=== PATIENT | male | born 1945 ===

== ENCOUNTER 2022-03-28 19:00 | Inpatient (IN) | payer MEDICARE, OTHER ==
[~2022-03-28] VITALS: Wt 102.3 kg
--- NOTE | 2022-03-29 04:46 | NUR ---
SUMMARY PT ARRIVED TO ROOM IN NO DISTRESS. PT IS AOX4 AND INDEPENDANT IN ROOM. PT DENIES ABD PAIN ON ARRIVAL. PT HAS BEEN TX FOR ABD DISCOMFORT PER EMAR WITH RELIEF. PT DENIES ANY N/V AT THIS TIME. PT HAD SX INFECTION PREVENTION PERFORMED. PT CURRENTLY RESTLY COMFORTABLY WITH NO COMPLAINTS.
--- NOTE | 2022-03-29 06:33 | NUR ---
0633 PT COVID TEST FROM [facility] WAS NEGATIVE. COPY PROVIDED IN FRONT OF PT'S CHART.
[2022-03-29 07:54] LABS: BASOPHILS ABSOLUTE AUTO 0.03 K/mm3 (0.00-0.23); BASOPHILS PERCENT AUTO 0 % (0-2); EOSINOPHILS ABSOLUTE AUTO 0.06 K/mm3 (0.00-0.68); EOSINOPHILS PERCENT AUTO 0 % (0-6); Hematocrit 45.7 % (37.0-53.0); Hemoglobin 14.1 g/dL (13.5-17.5); IMMATURE GRAN ABSOLUTE AUTO 0.05 K/mm3 (0.00-0.10); IMMATURE GRAN PERCENT AUTO 0 % (0-1); LYMPHOCYTES ABSOLUTE AUTO 1.07 K/mm3 (0.84-5.20); LYMPHOCYTES PERCENT AUTO 8 % (21-46); MONOCYTES ABSOLUTE AUTO 1.82 K/mm3 (0.16-1.47); MONOCYTES PERCENT AUTO 13 % (4-13); Mean Corpuscular HGB Conc 30.9 g/dL (31.5-36.5); Mean Corpuscular Volume 81 fL (80-100); Mean Platelet Volume 10.3 fL (9.1-12.4); NEUTROPHILS ABSOLUTE AUTO 10.62 K/mm3 (1.96-9.15); NEUTROPHILS PERCENT AUTO 78 % (41-73); Platelet Count 254 K/mm3 (150-400); RDW Coefficient Variation 16.9 % (11.7-14.2); RDW Standard Deviation 48.5 fL (35.1-46.3); Red Blood Cell Count 5.64 M/mm3 (4.30-5.90); White Blood Cell Count 13.65 K/mm3 (4.00-11.30)
--- NOTE | 2022-03-29 08:09 | NUR ---
PT HAS PREVIOUS NEGATIVE COVID TEST ON 03/28/22 AT [facility]. SEE PAPER CHART. PER DR. ROSSI, OK TO DC ORDERED COVID TEST.
[2022-03-29 08:11] LABS: Albumin, Blood 2.8 g/dL (3.4-5.0); Albumin/Globulin Ratio 0.6 (0.8-1.8); Bilirubin, Total 2.7 mg/dL (0.1-1.0); Bun/Creatinine Ratio 20.3 (12.0-20.0); Calcium, Blood 9.3 mg/dL (8.5-10.1); Creatinine, Blood 1.38 mg/dL (0.60-1.20); Globulin, Blood 4.8 g/dL (2.2-4.0); Total Protein, Blood 7.6 g/dL (6.4-8.2)
--- NOTE | 2022-03-29 10:21 | NUR ---
PT TO OR AT ABOUT 1015
--- NOTE | 2022-03-29 10:41 | NUR ---
PT RECENTLY TO [facility] BY [facility]. History, Chart, Medications and Allergies reviewed before start of procedure.Lungs clear T/O to Auscultation. Patient confirms NPO status and agrees with scheduled surgery. Pre-Op teaching done. Pt verbalizes understanding.
--- NOTE | 2022-03-29 16:11 | NUR ---
POST OP: REPORT RECEIVED FROM GAURAV, HOSE SUSPENDER CUTTER. PT TO UNIT AT ABOUT 1600. PT IS A/O, VSS. SURGICAL SITES WNL. 30ML BRIGHT RED DRAINAGE EMPTIED FROM LEATHA BULB. LEATHA WNL. PT REPORTS PAIN 5/10, MEDICATED PER EMAR. PT DENIES N/V ABLE TO TAKE SMALL SIPS OF WATER. REPORT PASSED TO GILDARDO STRAUSS.
--- NOTE | 2022-03-29 18:35 | NUR ---
SHIFT SUMMARY ASSUMED CARE OF PATIENT AT 1600 FROM DARIUS RAPHAEL RN. PATIENT ALERT AND ORIENTED. TOLERATING WATER AND JELLO. MEDICATED FOR ABD PAIN PER EMAR. IV FLUIDS RUNNING. VOIDING IN URINAL AT BEDSIDE. ABD DISTENDED WITH 3 LAP SITES AND A LEATHA DRAIN. WNL. LEATHA PUTTING OUT MOD AMOUNT SS DRAINAGE. POD #0 CHOLECYSTECTOMY. PLAN TO DISCHARGE HOME TOMORROW 03/30/22. WILL REPORT TO BIOMEDICAL EQUIPMENT TECHNICIAN RN.
--- NOTE | 2022-03-30 03:08 | NUR ---
POD1 LAP JUAN A WITH 3 LAP SITES WITH DERMABOND REMAIN CDI. 1 LEATHA DRAIN ON RLQ WITH 40ML DRAINAGE, SEROSANGENOUS. PT REPORTS MINIMAL PAIN. NO PAIN MEDS GIVEN OVERNIGHT. TOLERATING PO INTAKE, PT HAS TOLERATED CLEAR LIQ DIET OVERNIGHT. DENIES NAUSEA AND VOMITING. VSS. DENIES CHEST PAIN AND SOB. VOIDING 900ML, DARK YELLOW URINE. DENIES DYSURIA. BT PRESENT. ABD MILD DISTENTION. SALINE LOCKED THIS MORNING. AOX4. SCD'S IN PLACE. PT SLEPT GOOD LAST NIGHT, REPORTS THAT HE HAD 3HRS STRAIGHT OF DEEP SLEEP. AMBULATES INDEPENDENTLY IN ROOM. DENIES DIZZINESS. STEADY ON HIS FEET. CALL LIGHT WITHIN REACH. BED IN LOW POSITION. WILL PROVIDE REPORT TO ONCOMING NURSE.
[2022-03-30 05:08] LABS: BASOPHILS ABSOLUTE AUTO 0.03 K/mm3 (0.00-0.23); BASOPHILS PERCENT AUTO 0 % (0-2); EOSINOPHILS PERCENT AUTO 0 % (0-6); Hematocrit 38.3 % (37.0-53.0); Hemoglobin 12.2 g/dL (13.5-17.5); IMMATURE GRAN ABSOLUTE AUTO 0.08 K/mm3 (0.00-0.10); IMMATURE GRAN PERCENT AUTO 1 % (0-1); LYMPHOCYTES PERCENT AUTO 4 % (21-46); MONOCYTES ABSOLUTE AUTO 1.28 K/mm3 (0.16-1.47); MONOCYTES PERCENT AUTO 7 % (4-13); Mean Corpuscular HGB 25.2 pg (26.0-34.0); Mean Corpuscular HGB Conc 31.9 g/dL (31.5-36.5); Mean Corpuscular Volume 79 fL (80-100); Mean Platelet Volume 10.5 fL (9.1-12.4); NEUTROPHILS ABSOLUTE AUTO 15.51 K/mm3 (1.96-9.15); NEUTROPHILS PERCENT AUTO 88 % (41-73); Platelet Count 247 K/mm3 (150-400); RDW Coefficient Variation 16.5 % (11.7-14.2); RDW Standard Deviation 46.8 fL (35.1-46.3); Red Blood Cell Count 4.84 M/mm3 (4.30-5.90)
[2022-03-30 05:44] LABS: Albumin, Blood 2.4 g/dL (3.4-5.0); Albumin/Globulin Ratio 0.6 (0.8-1.8); Bilirubin, Total 1.1 mg/dL (0.1-1.0); Bun/Creatinine Ratio 24.8 (12.0-20.0); Creatinine, Blood 1.01 mg/dL (0.60-1.20); Globulin, Blood 4.3 g/dL (2.2-4.0); Potassium, Blood 4.3 mmol/L (3.5-5.5); Total Protein, Blood 6.7 g/dL (6.4-8.2)
[2022-03-30] MEDS ORDERED: HYDR1TAB94 PO (10:49)
[2022-03-30] MEDS ORDERED: ACET325 PO (10:49)
--- NOTE | 2022-03-30 12:50 | NUR ---
VERBAL AND WRITTEN DISCHARGE INSTRUCTIONS GONE OVER WITH PT, PT VERBALIZES UNDERSTANDING. IV REMOVED, WNL. BELONGININGS GATHERED AND TAKEN OUT WITH PT. WRITTEN SCRIPT GIVEN TO PT. WHEELED DOWN TO PT ENTRANCE AND ASSISTED INTO VEHICLE.
== END 2022-03-30 12:45 | disposition home or self-care (01) | DRG 419 ==
LOC: SURS 19:00
PROVIDERS: ADMIT Surgery
PROC: BF141ZZ Fluoroscopy of Gallbladder, Bile Ducts and Pancreatic Ducts using Low Osmolar Contrast (ICD-10-PCS; 2022-03-29)
PROC: 0FT44ZZ Resection of Gallbladder, Percutaneous Endoscopic Approach (ICD-10-PCS; principal; 2022-03-29 10:30)
DX: K81.0 Acute cholecystitis (principal); K82.A1 Gangrene of gallbladder in cholecystitis; Z87.891 Personal history of nicotine dependence
CPT/HCPCS: 36415; 74300; 80053; 85025; 88304; A9270; C1729; J1100; J1170; J1650; J2250; J2370; J2405; J2543; J2704; J3010; J7120